=== PATIENT | male | born 1930 | race Two or more races ===

== ENCOUNTER 2017-03-05 16:47 | Inpatient (IN) | payer BC, MEDICAID ==
[~2017-03-05] VITALS: Ht 185.4 cm; Wt 75.6 kg
[~2017-03-05 16:47] MED LIST: BICA50TA7 PO; CARB0.5D35 OP; DORZ1SOL2 OP; FER325T PO; LITH300C3 PO; THIO25TA PO
[2017-03-05] MEDS ORDERED: ACETAMINOPHEN 325 MG TAB PO ONE ×2 (17:39→17:45)
[2017-03-05] MEDS ORDERED: SODIUM CHLORIDE 0.9% 1,000 ML IVB ONE (18:13)
[2017-03-05 18:34] LABS: Albumin 2.9 g/dL (3.4-5.0); BUN/Creatinine Ratio 13.8; Potassium 3.7 mmol/L (3.5-5.1)
[2017-03-05 18:36] LABS: Basophils # (auto) 0 uL; Basophils % (auto) 0.2 % (0.0-2.0); Eosinophils # (auto) 0 uL; Hematocrit 37.5 % (41.0-53.0); Hemoglobin 12.7 g/dL (13.5-17.5); Lactic Acid w/Reflex 2.5 mmol/L (0.4-2.0); Lymphocytes # (auto) 0.8 uL; Lymphocytes % (auto) 7.7 % (10.0-50.0); Mean Corpuscular Hemoglobin 32.9 pg (28.0-32.0); Mean Corpuscular Hgb Conc. 33.9 g/dL (32.0-36.0); Mean Corpuscular Volume 96.9 fL (80.0-100.0); Monocytes # (auto) 0.9 uL; Monocytes % (auto) 8.5 % (0.0-12.0); Neutrophils # (auto) 8.9 uL; Neutrophils % (auto) 83.6 % (37.0-80.0); Nucleated Red Blood Cells % 0.1 %; Platelet Count (auto) 116 10^3/uL (140-450); Red Blood Cells 3.87 10^6/uL (4.5-5.90); Red Cell Distribution Width 13.1 % (11.8-14.3); White Blood Cell 10.7 10^3/uL (4.4-10.8)
[2017-03-05 18:38] LABS: Bilirubin, Total 0.4 mg/dL (0.2-1.0); Total Protein 7.2 g/dL (6.4-8.2)
[2017-03-05 18:50] LABS: INR 1.01 (0.9-1.15); Partial Thromboplastin Time 29.6 sec (22.64-33.71)
[2017-03-05] MEDS ORDERED: AZITHROMYCIN 500MG/ 250ML 250 ML IV ONE (19:00)
[2017-03-05] MEDS ORDERED: cefTRIAXone 1GM/10ml IVPUSH 10 ML IV ONE (19:00)
[2017-03-05] MEDS ORDERED: MORPHINE SULFATE 4 MG/ML SYR/VIAL IV PRN ×2 (19:30)
[2017-03-05] MEDS ORDERED: TEMAZEPAM 15 MG CAP PO PRN (19:30)
[2017-03-05] MEDS ORDERED: LACTULOSE 20Gm/30ML SOLN PO PRN (19:30)
[2017-03-05] MEDS ORDERED: LORazepam 0.5 MG TAB PO PRN (19:30)
[2017-03-05] MEDS ORDERED: NITROGLYCERIN 0.4 MG SL TAB SL PRN (19:30)
[2017-03-05] MEDS ORDERED: ACETAMINOPHEN 500 MG TAB PO PRN (19:30)
[2017-03-05] MEDS ORDERED: ALBUTEROL SULF 2.5 MG/0.5ML(0.5%) NEB SOLN NEB PRN (19:30)
[2017-03-05] MEDS ORDERED: PROMETHAZINE HCL 25 MG/ML 1ML IV PRN (19:30)
[2017-03-05] MEDS ORDERED: OSELTAMIVIR 75 MG CAP PO ONE (19:30)
[2017-03-05] MEDS: SODIUM CHLORIDE 0.9% 1,000 ML IV SCH ×2 (20:30→22:46)
[2017-03-05] MEDS ORDERED: ENOXAPARIN SOD 40 MG/0.4 ML SYRINGE SC SCH (21:00)
[2017-03-05 21:40] VITALS: BP 111/64
[2017-03-05 23:38] VITALS: BP 111/64
[2017-03-05 23:45] VITALS: BP 111/64
[2017-03-05] MEDS: IPRATROPIUM BROM 0.5 MG/2.5ML INH SOL NEB SCH (23:46)
[2017-03-05] MEDS: ALBUTEROL SULF 2.5 MG/0.5ML(0.5%) NEB SOLN NEB SCH (23:46)
[2017-03-06] MEDS ORDERED: ASCO100C2 PO (00:14)
[2017-03-06] MEDS ORDERED: MULT-569 PO (00:14)
[2017-03-06] MEDS ORDERED: LEVO25TA6 PO (00:14)
[2017-03-06 05:35] VITALS: BP 140/62
[2017-03-06] MEDS: ALBUTEROL SULF 2.5 MG/0.5ML(0.5%) NEB SOLN NEB SCH ×3 (07:56→18:00)
[2017-03-06] MEDS: IPRATROPIUM BROM 0.5 MG/2.5ML INH SOL NEB SCH ×3 (07:56→18:00)
[2017-03-06 09:00] VITALS: BP 113/63
[2017-03-06] MEDS: cefTRIAXone 1GM/10ml IVPUSH 10 ML IV SCH (09:23)
[2017-03-06] MEDS: AZITHROMYCIN 500MG/ 250ML 250 ML IV SCH (09:23)
[2017-03-06] MEDS ORDERED: OSELTAMIVIR 75 MG CAP PO SCH (10:00)
[2017-03-06] MEDS ORDERED: LITH300C3 PO (10:40)
[2017-03-06] MEDS ORDERED: DORZ2SOL22 LEFTEYE (10:40)
[2017-03-06] MEDS ORDERED: BICA50TA7 PO (10:40)
[2017-03-06] MEDS ORDERED: LEVO50TA7 PO (10:40)
[2017-03-06] MEDS ORDERED: THIO25TA PO (10:40)
[2017-03-06 13:00] VITALS: BP 121/58
[2017-03-06] MEDS: LITHIUM CARBONATE 300 MG TAB PO SCH ×2 (15:11→21:55)
[2017-03-06 16:00] VITALS: BP 121/61
[2017-03-06] MEDS: SODIUM CHLORIDE 0.9% 1,000 ML IV SCH (21:55)
[2017-03-06 22:00] VITALS: BP 128/69
[2017-03-07] MEDS: ALBUTEROL SULF 2.5 MG/0.5ML(0.5%) NEB SOLN NEB SCH ×5 (00:23→23:47)
[2017-03-07] MEDS: IPRATROPIUM BROM 0.5 MG/2.5ML INH SOL NEB SCH ×5 (00:23→23:47)
[2017-03-07] MEDS ORDERED: BICA50TA6 PO (00:26)
[2017-03-07 05:00] VITALS: BP 111/56
[2017-03-07] MEDS: LITHIUM CARBONATE 300 MG TAB PO SCH ×3 (06:43→21:18)
[2017-03-07 06:53] LABS: Basophils # (auto) 0 uL; Basophils % (auto) 0.2 % (0.0-2.0); Eosinophils # (auto) 0 uL; Eosinophils % (auto) 0.6 % (0.0-7.0); Hematocrit 33.4 % (41.0-53.0); Hemoglobin 11.3 g/dL (13.5-17.5); Lymphocytes # (auto) 1.7 uL; Lymphocytes % (auto) 30.3 % (10.0-50.0); Mean Corpuscular Hemoglobin 32.7 pg (28.0-32.0); Mean Corpuscular Hgb Conc. 33.9 g/dL (32.0-36.0); Mean Corpuscular Volume 96.5 fL (80.0-100.0); Monocytes # (auto) 0.6 uL; Neutrophils # (auto) 3.3 uL; Neutrophils % (auto) 58.9 % (37.0-80.0); Nucleated Red Blood Cells % 0.1 %; Platelet Count (auto) 93 10^3/uL (140-450); Red Blood Cells 3.46 10^6/uL (4.5-5.90); Red Cell Distribution Width 13.3 % (11.8-14.3); White Blood Cell 5.7 10^3/uL (4.4-10.8)
[2017-03-07 07:11] LABS: BUN/Creatinine Ratio 13.3; Calcium 7.4 mg/dL (8.5-10.1)
[2017-03-07] MEDS: AZITHROMYCIN 500MG/ 250ML 250 ML IV SCH (09:14)
[2017-03-07] MEDS: cefTRIAXone 1GM/10ml IVPUSH 10 ML IV SCH (09:14)
[2017-03-07 09:15] VITALS: BP 117/56
[2017-03-07] MEDS ORDERED: methylPREDNISolone SOD SUCC 40 MG/ML VL IV ONE (12:00)
[2017-03-07 12:19] VITALS: BP 109/54
[2017-03-07 17:03] VITALS: BP 122/62
[2017-03-07] MEDS: methylPREDNISolone SOD SUCC 40 MG/ML VL IV SCH (21:17)
[2017-03-07] MEDS: HCL PO SCH (21:29)
[2017-03-07] MEDS: THIORIDAZINE PO SCH (21:29)
[2017-03-07 21:58] VITALS: BP 132/69
[2017-03-08] VITALS (7 sets, daily range): BP systolic 125–147; BP diastolic 71–88
[2017-03-08] MEDS: LITHIUM CARBONATE 300 MG TAB PO SCH ×3 (05:28→20:56)
[2017-03-08] MEDS: IPRATROPIUM BROM 0.5 MG/2.5ML INH SOL NEB SCH ×2 (07:07→11:31)
[2017-03-08] MEDS: ALBUTEROL SULF 2.5 MG/0.5ML(0.5%) NEB SOLN NEB SCH ×2 (07:08→11:31)
[2017-03-08] MEDS: cefTRIAXone 1GM/10ml IVPUSH 10 ML IV SCH (09:46)
[2017-03-08] MEDS: AZITHROMYCIN 500MG/ 250ML 250 ML IV SCH (09:46)
[2017-03-08] MEDS: methylPREDNISolone SOD SUCC 40 MG/ML VL IV SCH (09:46)
[2017-03-08] MEDS: THIORIDAZINE PO SCH (10:00)
[2017-03-08] MEDS: HCL PO SCH (10:00)
[2017-03-08] MEDS ORDERED: PATIENTS OWN MEDICATION PO SCH (12:00)
[2017-03-08] MEDS: THIORIDAZINE 25 MG PO SCH ×2 (17:03→20:58)
[2017-03-09] MEDS: ALBUTEROL SULF 2.5 MG/0.5ML(0.5%) NEB SOLN NEB SCH ×4 (00:30→19:25)
[2017-03-09] MEDS: IPRATROPIUM BROM 0.5 MG/2.5ML INH SOL NEB SCH ×4 (00:30→19:25)
[2017-03-09 04:56] VITALS: BP 131/87
[2017-03-09 06:00] LABS: Basophils # (auto) 0 uL; Basophils % (auto) 0.1 % (0.0-2.0); Eosinophils # (auto) 0 uL; Hemoglobin 12.2 g/dL (13.5-17.5); Lymphocytes # (auto) 1.6 uL; Lymphocytes % (auto) 15.7 % (10.0-50.0); Mean Corpuscular Hemoglobin 32.4 pg (28.0-32.0); Mean Corpuscular Hgb Conc. 33.8 g/dL (32.0-36.0); Mean Corpuscular Volume 95.7 fL (80.0-100.0); Monocytes # (auto) 0.7 uL; Monocytes % (auto) 7.1 % (0.0-12.0); Neutrophils % (auto) 77.1 % (37.0-80.0); Platelet Count (auto) 128 10^3/uL (140-450); Red Blood Cells 3.76 10^6/uL (4.5-5.90); White Blood Cell 10.3 10^3/uL (4.4-10.8)
[2017-03-09 06:21] LABS: BUN/Creatinine Ratio 27.3; Calcium 8.2 mg/dL (8.5-10.1); Potassium 4.3 mmol/L (3.5-5.1)
[2017-03-09] MEDS: LITHIUM CARBONATE 300 MG TAB PO SCH ×3 (06:38→21:18)
[2017-03-09] MEDS: LEVOTHYROXINE SODIUM 50 MCG TAB PO SCH (06:38)
[2017-03-09] MEDS: THIORIDAZINE 25 MG PO SCH ×3 (06:39→21:18)
[2017-03-09 07:42] VITALS: BP 143/81
[2017-03-09] MEDS: cefTRIAXone 1GM/10ml IVPUSH 10 ML IV SCH (09:49)
[2017-03-09] MEDS: AZITHROMYCIN 500MG/ 250ML 250 ML IV SCH (09:50)
[2017-03-09] MEDS: predniSONE 20 MG TAB PO SCH (09:50)
[2017-03-09 11:50] VITALS: BP 141/68
[2017-03-09 13:47] LABS: Urine Bacteria NONE SEEN /hpf (None Seen); Urine Blood Negative /uL (Negative); Urine Specific Gravity 1.012 (1.001-1.035); Urine WBC 1 /hpf (0 - 3)
[2017-03-09 17:01] VITALS: BP 139/75
[2017-03-09 22:18] VITALS: BP 142/78
[2017-03-09 23:42] LABS: % Iron Saturation 26.6 % (20-55)
[2017-03-10] MEDS: ALBUTEROL SULF 2.5 MG/0.5ML(0.5%) NEB SOLN NEB SCH ×4 (00:06→19:11)
[2017-03-10] MEDS: IPRATROPIUM BROM 0.5 MG/2.5ML INH SOL NEB SCH ×4 (00:06→19:10)
[2017-03-10 04:42] VITALS: BP 132/67
[2017-03-10] MEDS: LITHIUM CARBONATE 300 MG TAB PO SCH ×3 (05:47→20:41)
[2017-03-10] MEDS: LEVOTHYROXINE SODIUM 50 MCG TAB PO SCH (05:48)
[2017-03-10] MEDS: THIORIDAZINE 25 MG PO SCH ×3 (05:48→20:42)
[2017-03-10 06:31] LABS: Basophils # (auto) 0 uL; Basophils % (auto) 0.1 % (0.0-2.0); Eosinophils # (auto) 0 uL; Eosinophils % (auto) 0.1 % (0.0-7.0); Hematocrit 37.2 % (41.0-53.0); Hemoglobin 12.7 g/dL (13.5-17.5); Lymphocytes # (auto) 1.8 uL; Lymphocytes % (auto) 21.3 % (10.0-50.0); Mean Corpuscular Hemoglobin 32.5 pg (28.0-32.0); Mean Corpuscular Hgb Conc. 34.1 g/dL (32.0-36.0); Mean Corpuscular Volume 95.4 fL (80.0-100.0); Monocytes # (auto) 0.8 uL; Monocytes % (auto) 9.7 % (0.0-12.0); Neutrophils # (auto) 5.7 uL; Neutrophils % (auto) 68.8 % (37.0-80.0); Platelet Count (auto) 132 10^3/uL (140-450); White Blood Cell 8.3 10^3/uL (4.4-10.8)
[2017-03-10 07:30] LABS: Albumin 2.5 g/dL (3.4-5.0); BUN/Creatinine Ratio 28.7; Bilirubin, Total 0.3 mg/dL (0.2-1.0); Calcium 8.3 mg/dL (8.5-10.1); Magnesium 2.8 mg/dL (1.6-2.6); Phosphorus 3.1 mg/dL (2.5-4.90); Potassium 4.2 mmol/L (3.5-5.1); Total Protein 6.2 g/dL (6.4-8.2)
[2017-03-10 08:23] VITALS: BP 137/79
[2017-03-10] MEDS: cefTRIAXone 1GM/10ml IVPUSH 10 ML IV SCH (10:17)
[2017-03-10] MEDS: AZITHROMYCIN 500MG/ 250ML 250 ML IV SCH (10:18)
[2017-03-10] MEDS: predniSONE 20 MG TAB PO SCH (10:18)
[2017-03-10] MEDS: FERROUS SULFATE 325 MG TAB PO SCH (12:41)
[2017-03-10] MEDS: MULTIPLE VITAMINS W/ MINERALS TAB PO SCH (12:42)
[2017-03-10] MEDS: ASCORBIC ACID 500 MG TAB PO SCH (12:42)
[2017-03-10] MEDS: BICALUTAMIDE 50 MG TAB PO SCH (12:50)
[2017-03-10 13:21] VITALS: BP 144/61
[2017-03-10] MEDS ORDERED: THIORIDAZINE HCL PO SCH (14:00)
[2017-03-10] MEDS ORDERED: LITHIUM CARBONATE 300 MG TAB PO SCH (14:00)
[2017-03-10] MEDS ORDERED: LEVOTHYROXINE SODIUM 50 MCG TAB PO ONE (15:00)
[2017-03-10 17:00] VITALS: BP 129/79
[2017-03-10] MEDS: BOOST PLUS 8 ounce PO SCH (18:00)
[2017-03-10] MEDS ORDERED: FERR-20 PO (19:51)
[2017-03-10] MEDS ORDERED: ASCO500T11 PO (19:51)
[2017-03-10] MEDS ORDERED: THIO50TA PO (19:51)
[2017-03-10] MEDS ORDERED: LITH300C3 PO (19:51)
[2017-03-10] MEDS ORDERED: THIO25TA PO (19:51)
[2017-03-10] MEDS: DORZOLAM-TIMOLOL(2/0.5%) OPTH(EYE) SOLN 10ML LEFTEYE SCH (20:41)
[2017-03-10 22:00] VITALS: BP 131/76
[2017-03-11] MEDS: IPRATROPIUM BROM 0.5 MG/2.5ML INH SOL NEB SCH ×4 (00:40→20:30)
[2017-03-11] MEDS: ALBUTEROL SULF 2.5 MG/0.5ML(0.5%) NEB SOLN NEB SCH ×4 (00:40→20:30)
[2017-03-11 05:00] VITALS: BP 136/82
[2017-03-11] MEDS: LITHIUM CARBONATE 300 MG TAB PO SCH ×3 (05:38→19:55)
[2017-03-11] MEDS: THIORIDAZINE 25 MG PO SCH ×3 (05:39→19:48)
[2017-03-11] MEDS: LEVOTHYROXINE SODIUM 50 MCG TAB PO SCH (05:40)
[2017-03-11 06:29] LABS: Basophils # (auto) 0 uL; Basophils % (auto) 0.1 % (0.0-2.0); Eosinophils # (auto) 0 uL; Eosinophils % (auto) 0.3 % (0.0-7.0); Hematocrit 39.2 % (41.0-53.0); Hemoglobin 13.4 g/dL (13.5-17.5); Lymphocytes # (auto) 2.2 uL; Mean Corpuscular Hemoglobin 32.4 pg (28.0-32.0); Mean Corpuscular Hgb Conc. 34.2 g/dL (32.0-36.0); Mean Corpuscular Volume 94.8 fL (80.0-100.0); Monocytes # (auto) 0.9 uL; Monocytes % (auto) 8.2 % (0.0-12.0); Neutrophils # (auto) 7.5 uL; Neutrophils % (auto) 70.4 % (37.0-80.0); Platelet Count (auto) 150 10^3/uL (140-450); Red Blood Cells 4.13 10^6/uL (4.5-5.90); White Blood Cell 10.7 10^3/uL (4.4-10.8)
[2017-03-11 06:49] LABS: Albumin 2.5 g/dL (3.4-5.0); BUN/Creatinine Ratio 30.9; Bilirubin, Total 0.3 mg/dL (0.2-1.0); Calcium 8.1 mg/dL (8.5-10.1); Magnesium 2.7 mg/dL (1.6-2.6); Phosphorus 3.2 mg/dL (2.5-4.90); Total Protein 6.4 g/dL (6.4-8.2)
[2017-03-11] MEDS ORDERED: LEVOTHYROXINE SODIUM 50 MCG TAB PO SCH (07:00)
[2017-03-11 09:00] VITALS: BP 136/78
[2017-03-11] MEDS: DORZOLAM-TIMOLOL(2/0.5%) OPTH(EYE) SOLN 10ML LEFTEYE SCH ×2 (10:07→19:55)
[2017-03-11] MEDS: BOOST PLUS 8 ounce PO SCH ×2 (10:07→18:00)
[2017-03-11] MEDS: cefTRIAXone 1GM/10ml IVPUSH 10 ML IV SCH (10:07)
[2017-03-11] MEDS: BICALUTAMIDE 50 MG TAB PO SCH (10:08)
[2017-03-11] MEDS: MULTIPLE VITAMINS W/ MINERALS TAB PO SCH (10:08)
[2017-03-11] MEDS: predniSONE 20 MG TAB PO SCH (10:08)
[2017-03-11] MEDS: FERROUS SULFATE 325 MG TAB PO SCH (10:08)
[2017-03-11] MEDS: ASCORBIC ACID 500 MG TAB PO SCH (10:08)
[2017-03-11] MEDS ORDERED: LEVOFLOXACIN 500MG 100 ML IV ONE (12:30)
[2017-03-11 12:50] VITALS: BP 124/72
[2017-03-11 17:00] VITALS: BP 119/73
[2017-03-11 22:00] VITALS: BP 145/80
[2017-03-12] MEDS: ALBUTEROL SULF 2.5 MG/0.5ML(0.5%) NEB SOLN NEB SCH ×4 (01:10→19:27)
[2017-03-12] MEDS: IPRATROPIUM BROM 0.5 MG/2.5ML INH SOL NEB SCH ×4 (01:10→19:26)
[2017-03-12 05:00] VITALS: BP 141/84
[2017-03-12] MEDS: THIORIDAZINE 25 MG PO SCH ×3 (06:00→20:00)
[2017-03-12] MEDS: LEVOTHYROXINE SODIUM 50 MCG TAB PO SCH (06:39)
[2017-03-12] MEDS: LITHIUM CARBONATE 300 MG TAB PO SCH ×3 (06:40→20:20)
[2017-03-12] MEDS: HYDROcodone-ACET 5/325MG TAB PO PRN ×2 (08:08→13:46)
[2017-03-12 08:57] VITALS: BP 127/65
[2017-03-12] MEDS ORDERED: AZITHROMYCIN 250 MG TAB PO SCH (10:00)
[2017-03-12] MEDS: BOOST PLUS 8 ounce PO SCH ×2 (10:10→18:00)
[2017-03-12] MEDS: LEVOFLOXACIN 500MG 100 ML IV SCH (10:12)
[2017-03-12] MEDS: FERROUS SULFATE 325 MG TAB PO SCH (10:12)
[2017-03-12] MEDS: ASCORBIC ACID 500 MG TAB PO SCH (10:13)
[2017-03-12] MEDS: MULTIPLE VITAMINS W/ MINERALS TAB PO SCH (10:13)
[2017-03-12] MEDS: DORZOLAM-TIMOLOL(2/0.5%) OPTH(EYE) SOLN 10ML LEFTEYE SCH ×2 (10:14→20:00)
[2017-03-12] MEDS: predniSONE 20 MG TAB PO SCH (10:14)
[2017-03-12] MEDS: BICALUTAMIDE 50 MG TAB PO SCH (10:18)
[2017-03-12 13:28] VITALS: BP 124/65
[2017-03-12] MEDS: metroNIDAZOLE 500MG/100ML 100 ML IV SCH ×2 (13:46→22:27)
[2017-03-12 16:28] VITALS: BP 123/66
[2017-03-12 17:11] VITALS: BP 123/78
[2017-03-12 22:00] VITALS: BP 118/60
[2017-03-13] MEDS: IPRATROPIUM BROM 0.5 MG/2.5ML INH SOL NEB SCH ×4 (00:38→19:43)
[2017-03-13] MEDS: ALBUTEROL SULF 2.5 MG/0.5ML(0.5%) NEB SOLN NEB SCH ×4 (00:38→19:43)
[2017-03-13 05:00] VITALS: BP 134/80
[2017-03-13] MEDS: metroNIDAZOLE 500MG/100ML 100 ML IV SCH ×3 (05:40→21:35)
[2017-03-13] MEDS: LEVOTHYROXINE SODIUM 50 MCG TAB PO SCH (05:48)
[2017-03-13] MEDS: LITHIUM CARBONATE 300 MG TAB PO SCH ×3 (05:49→22:00)
[2017-03-13] MEDS: THIORIDAZINE 25 MG PO SCH ×3 (05:50→22:00)
[2017-03-13 06:58] LABS: Albumin 2.6 g/dL (3.4-5.0); BUN/Creatinine Ratio 26.3; Bilirubin, Total 0.4 mg/dL (0.2-1.0); Calcium 8.2 mg/dL (8.5-10.1); Total Protein 6.5 g/dL (6.4-8.2)
[2017-03-13 07:04] LABS: Basophils # (auto) 0 uL; Basophils % (auto) 0.1 % (0.0-2.0); Eosinophils # (auto) 0.1 uL; Eosinophils % (auto) 1.1 % (0.0-7.0); Hematocrit 39.2 % (41.0-53.0); Hemoglobin 13.2 g/dL (13.5-17.5); Lymphocytes # (auto) 2.4 uL; Lymphocytes % (auto) 17.4 % (10.0-50.0); Mean Corpuscular Hemoglobin 31.9 pg (28.0-32.0); Mean Corpuscular Hgb Conc. 33.7 g/dL (32.0-36.0); Mean Corpuscular Volume 94.9 fL (80.0-100.0); Monocytes # (auto) 0.9 uL; Monocytes % (auto) 6.8 % (0.0-12.0); Neutrophils # (auto) 10.2 uL; Neutrophils % (auto) 74.6 % (37.0-80.0); Platelet Count (auto) 147 10^3/uL (140-450); Red Blood Cells 4.13 10^6/uL (4.5-5.90); Red Cell Distribution Width 12.8 % (11.8-14.3); White Blood Cell 13.7 10^3/uL (4.4-10.8)
[2017-03-13 08:30] VITALS: BP 133/75
[2017-03-13] MEDS: ASCORBIC ACID 500 MG TAB PO SCH (08:47)
[2017-03-13] MEDS: predniSONE 20 MG TAB PO SCH (08:47)
[2017-03-13] MEDS: DORZOLAM-TIMOLOL(2/0.5%) OPTH(EYE) SOLN 10ML LEFTEYE SCH ×2 (08:47→21:35)
[2017-03-13] MEDS: FERROUS SULFATE 325 MG TAB PO SCH (08:48)
[2017-03-13] MEDS: MULTIPLE VITAMINS W/ MINERALS TAB PO SCH (08:48)
[2017-03-13] MEDS: BICALUTAMIDE 50 MG TAB PO SCH (08:48)
[2017-03-13] MEDS: LEVOFLOXACIN 500MG 100 ML IV SCH (08:48)
[2017-03-13] MEDS: BOOST PLUS 8 ounce PO SCH ×2 (08:49→17:48)
[2017-03-13 12:30] VITALS: BP 131/66
[2017-03-13] MEDS: HYDROcodone-ACET 5/325MG TAB PO PRN (13:51)
[2017-03-13] MEDS ORDERED: TEMAZEPAM 15 MG CAP PO PRN (15:15)
[2017-03-13] MEDS ORDERED: LORazepam 0.5 MG TAB PO PRN (15:15)
[2017-03-13] MEDS ORDERED: MORPHINE SULF INJ 2 MG/ML SYRINGE 1ML IV PRN ×2 (15:30)
[2017-03-13 17:17] VITALS: BP 131/72
[2017-03-13 22:13] VITALS: BP 132/74
[2017-03-14 05:41] VITALS: BP 130/73
[2017-03-14] MEDS: IPRATROPIUM BROM 0.5 MG/2.5ML INH SOL NEB SCH ×4 (05:53→19:00)
[2017-03-14] MEDS: ALBUTEROL SULF 2.5 MG/0.5ML(0.5%) NEB SOLN NEB SCH ×4 (05:54→19:01)
[2017-03-14] MEDS: LEVOTHYROXINE SODIUM 50 MCG TAB PO SCH (06:12)
[2017-03-14] MEDS: metroNIDAZOLE 500MG/100ML 100 ML IV SCH ×3 (06:12→22:02)
[2017-03-14] MEDS: LITHIUM CARBONATE 300 MG TAB PO SCH ×3 (06:12→20:15)
[2017-03-14] MEDS: THIORIDAZINE 25 MG PO SCH ×3 (06:12→20:15)
[2017-03-14] MEDS: LEVOFLOXACIN 500MG 100 ML IV SCH (08:40)
[2017-03-14] MEDS: DORZOLAM-TIMOLOL(2/0.5%) OPTH(EYE) SOLN 10ML LEFTEYE SCH ×2 (08:40→22:02)
[2017-03-14] MEDS: BICALUTAMIDE 50 MG TAB PO SCH (08:41)
[2017-03-14] MEDS: predniSONE 20 MG TAB PO SCH (08:41)
[2017-03-14] MEDS: FERROUS SULFATE 325 MG TAB PO SCH (08:41)
[2017-03-14] MEDS: BOOST PLUS 8 ounce PO SCH ×2 (08:42→17:59)
[2017-03-14] MEDS: ASCORBIC ACID 500 MG TAB PO SCH (08:42)
[2017-03-14] MEDS: MULTIPLE VITAMINS W/ MINERALS TAB PO SCH (08:42)
[2017-03-14 08:59] VITALS: BP 132/75
[2017-03-14 13:00] VITALS: BP 127/69
[2017-03-14 17:00] VITALS: BP 118/71
[2017-03-14 18:32] LABS: Partial Thromboplastin Time 24.1 sec (22.64-33.71)
[2017-03-14 18:36] LABS: INR 0.99 (0.9-1.15); Prothrombin Time 10.8 sec (9.37-12.3)
[2017-03-14 21:56] VITALS: BP 125/80
[2017-03-15] VITALS (8 sets, daily range): BP systolic 115–130; BP diastolic 63–74
[2017-03-15] MEDS: IPRATROPIUM BROM 0.5 MG/2.5ML INH SOL NEB SCH ×4 (00:13→19:28)
[2017-03-15] MEDS: ALBUTEROL SULF 2.5 MG/0.5ML(0.5%) NEB SOLN NEB SCH ×4 (00:14→19:28)
[2017-03-15] MEDS: THIORIDAZINE 25 MG PO SCH ×3 (05:25→22:03)
[2017-03-15] MEDS: LEVOTHYROXINE SODIUM 50 MCG TAB PO SCH (05:25)
[2017-03-15] MEDS: LITHIUM CARBONATE 300 MG TAB PO SCH ×3 (05:25→22:03)
[2017-03-15] MEDS: metroNIDAZOLE 500MG/100ML 100 ML IV SCH (05:25)
[2017-03-15] MEDS ORDERED: ceFAZolin 1GM/50ML 50 ML IV ONE (06:58)
[2017-03-15] MEDS ORDERED: predniSONE 20 MG TAB PO SCH (10:00)
[2017-03-15] MEDS: DORZOLAM-TIMOLOL(2/0.5%) OPTH(EYE) SOLN 10ML LEFTEYE SCH ×2 (10:05→22:03)
[2017-03-15] MEDS: ASCORBIC ACID 500 MG TAB PO SCH (10:05)
[2017-03-15] MEDS: MULTIPLE VITAMINS W/ MINERALS TAB PO SCH (10:06)
[2017-03-15] MEDS: FERROUS SULFATE 325 MG TAB PO SCH (10:06)
[2017-03-15] MEDS: LEVOFLOXACIN 500MG 100 ML IV SCH (10:07)
[2017-03-15] MEDS: BOOST PLUS 8 ounce PO SCH ×2 (10:08→18:00)
[2017-03-15] MEDS: BICALUTAMIDE 50 MG TAB PO SCH (10:14)
[2017-03-15] MEDS: metroNIDAZOLE 500 MG TAB PO SCH ×2 (14:28→22:03)
[2017-03-16] MEDS: IPRATROPIUM BROM 0.5 MG/2.5ML INH SOL NEB SCH ×5 (00:53→18:00)
[2017-03-16] MEDS: ALBUTEROL SULF 2.5 MG/0.5ML(0.5%) NEB SOLN NEB SCH ×5 (00:53→18:00)
[2017-03-16 04:59] VITALS: BP 112/64
[2017-03-16] MEDS: LITHIUM CARBONATE 300 MG TAB PO SCH ×3 (06:25→21:56)
[2017-03-16] MEDS: metroNIDAZOLE 500 MG TAB PO SCH ×3 (06:26→21:56)
[2017-03-16] MEDS: THIORIDAZINE 25 MG PO SCH ×3 (06:26→21:56)
[2017-03-16] MEDS: LEVOTHYROXINE SODIUM 50 MCG TAB PO SCH (06:37)
[2017-03-16 07:19] LABS: Albumin 2.3 g/dL (3.4-5.0); BUN/Creatinine Ratio 34.1; Calcium 8.3 mg/dL (8.5-10.1); Potassium 3.9 mmol/L (3.5-5.1)
[2017-03-16 07:20] LABS: Basophils # (auto) 0 uL; Basophils % (auto) 0.1 % (0.0-2.0); Eosinophils # (auto) 0.1 uL; Eosinophils % (auto) 0.6 % (0.0-7.0); Hematocrit 37.1 % (41.0-53.0); Hemoglobin 12.3 g/dL (13.5-17.5); Lymphocytes # (auto) 2.2 uL; Lymphocytes % (auto) 10.6 % (10.0-50.0); Mean Corpuscular Hemoglobin 31.8 pg (28.0-32.0); Mean Corpuscular Hgb Conc. 33.1 g/dL (32.0-36.0); Monocytes # (auto) 1.6 uL; Monocytes % (auto) 7.7 % (0.0-12.0); Platelet Count (auto) 158 10^3/uL (140-450); Red Blood Cells 3.87 10^6/uL (4.5-5.90); Red Cell Distribution Width 13.2 % (11.8-14.3)
[2017-03-16 07:22] LABS: Bilirubin, Total 0.3 mg/dL (0.2-1.0); Total Protein 6.3 g/dL (6.4-8.2)
[2017-03-16 08:00] VITALS: BP 135/78
[2017-03-16 08:40] VITALS: BP 117/64
[2017-03-16] MEDS: MULTIPLE VITAMINS W/ MINERALS TAB PO SCH (10:00)
[2017-03-16] MEDS: ASCORBIC ACID 500 MG TAB PO SCH (10:00)
[2017-03-16] MEDS: BICALUTAMIDE 50 MG TAB PO SCH (10:01)
[2017-03-16] MEDS: BOOST PLUS 8 ounce PO SCH ×2 (10:01→18:00)
[2017-03-16] MEDS: LEVOFLOXACIN 500MG 100 ML IV SCH (10:01)
[2017-03-16] MEDS: FERROUS SULFATE 325 MG TAB PO SCH (10:01)
[2017-03-16] MEDS: DORZOLAM-TIMOLOL(2/0.5%) OPTH(EYE) SOLN 10ML LEFTEYE SCH ×2 (10:02→21:55)
[2017-03-16 12:30] VITALS: BP 120/70
[2017-03-16 17:23] VITALS: BP 114/65
[2017-03-16] MEDS: HYDROcodone-ACET 5/325MG TAB PO PRN (18:30)
[2017-03-16 22:28] VITALS: BP 129/55
[2017-03-17] VITALS (7 sets, daily range): BP systolic 113–121; BP diastolic 50–66
[2017-03-17] MEDS: IPRATROPIUM BROM 0.5 MG/2.5ML INH SOL NEB SCH ×4 (00:40→19:47)
[2017-03-17] MEDS: ALBUTEROL SULF 2.5 MG/0.5ML(0.5%) NEB SOLN NEB SCH ×4 (00:40→19:47)
[2017-03-17] MEDS: metroNIDAZOLE 500 MG TAB PO SCH ×3 (05:23→22:08)
[2017-03-17] MEDS: THIORIDAZINE 25 MG PO SCH ×3 (05:23→22:08)
[2017-03-17] MEDS: LITHIUM CARBONATE 300 MG TAB PO SCH ×3 (05:24→22:06)
[2017-03-17] MEDS: LEVOTHYROXINE SODIUM 50 MCG TAB PO SCH (06:29)
[2017-03-17 07:18] LABS: Basophils # (auto) 0 uL; Basophils % (auto) 0.1 % (0.0-2.0); Eosinophils # (auto) 0.1 uL; Eosinophils % (auto) 0.4 % (0.0-7.0); Hemoglobin 11.8 g/dL (13.5-17.5); Lymphocytes # (auto) 1.7 uL; Lymphocytes % (auto) 8.9 % (10.0-50.0); Mean Corpuscular Hemoglobin 32.2 pg (28.0-32.0); Mean Corpuscular Hgb Conc. 33.6 g/dL (32.0-36.0); Mean Corpuscular Volume 95.8 fL (80.0-100.0); Monocytes # (auto) 1.6 uL; Monocytes % (auto) 8.1 % (0.0-12.0); Neutrophils # (auto) 16.1 uL; Neutrophils % (auto) 82.5 % (37.0-80.0); Nucleated Red Blood Cells % 0.1 %; Platelet Count (auto) 166 10^3/uL (140-450); Red Blood Cells 3.65 10^6/uL (4.5-5.90); White Blood Cell 19.6 10^3/uL (4.4-10.8)
[2017-03-17 07:23] LABS: Calcium 8.1 mg/dL (8.5-10.1); Potassium 4.2 mmol/L (3.5-5.1)
[2017-03-17] MEDS: MULTIPLE VITAMINS W/ MINERALS TAB PO SCH (09:43)
[2017-03-17] MEDS: LEVOFLOXACIN 500MG 100 ML IV SCH (09:43)
[2017-03-17] MEDS: ASCORBIC ACID 500 MG TAB PO SCH (09:43)
[2017-03-17] MEDS: BICALUTAMIDE 50 MG TAB PO SCH (09:43)
[2017-03-17] MEDS: FERROUS SULFATE 325 MG TAB PO SCH (09:45)
[2017-03-17] MEDS: DORZOLAM-TIMOLOL(2/0.5%) OPTH(EYE) SOLN 10ML LEFTEYE SCH ×2 (09:45→22:09)
[2017-03-17] MEDS: BOOST PLUS 8 ounce PO SCH ×2 (09:46→18:25)
[2017-03-17] MEDS: HYDROcodone-ACET 5/325MG TAB PO PRN (22:06)
[2017-03-18] VITALS (7 sets, daily range): BP systolic 115–126; BP diastolic 58–73
[2017-03-18] MEDS: ALBUTEROL SULF 2.5 MG/0.5ML(0.5%) NEB SOLN NEB SCH ×4 (00:35→19:25)
[2017-03-18] MEDS: IPRATROPIUM BROM 0.5 MG/2.5ML INH SOL NEB SCH ×4 (00:35→19:25)
[2017-03-18] MEDS: THIORIDAZINE 25 MG PO SCH ×3 (06:00→21:42)
[2017-03-18] MEDS: LITHIUM CARBONATE 300 MG TAB PO SCH ×3 (06:00→21:42)
[2017-03-18] MEDS: metroNIDAZOLE 500 MG TAB PO SCH ×3 (06:01→21:42)
[2017-03-18 06:33] LABS: Basophils # (auto) 0 uL; Basophils % (auto) 0.2 % (0.0-2.0); Eosinophils # (auto) 0.1 uL; Eosinophils % (auto) 0.4 % (0.0-7.0); Hematocrit 34.8 % (41.0-53.0); Hemoglobin 11.6 g/dL (13.5-17.5); Lymphocytes # (auto) 1.2 uL; Mean Corpuscular Hgb Conc. 33.5 g/dL (32.0-36.0); Mean Corpuscular Volume 95.7 fL (80.0-100.0); Monocytes # (auto) 1.6 uL; Monocytes % (auto) 7.9 % (0.0-12.0); Neutrophils # (auto) 17.3 uL; Neutrophils % (auto) 85.5 % (37.0-80.0); Platelet Count (auto) 162 10^3/uL (140-450); Red Blood Cells 3.63 10^6/uL (4.5-5.90); Red Cell Distribution Width 13.3 % (11.8-14.3); White Blood Cell 20.2 10^3/uL (4.4-10.8)
[2017-03-18] MEDS: LEVOTHYROXINE SODIUM 50 MCG TAB PO SCH (06:59)
[2017-03-18 07:04] LABS: Albumin 2.1 g/dL (3.4-5.0); BUN/Creatinine Ratio 27.5; Bilirubin, Total 0.8 mg/dL (0.2-1.0); Potassium 4.5 mmol/L (3.5-5.1); Total Protein 6.1 g/dL (6.4-8.2)
[2017-03-18] MEDS: BOOST PLUS 8 ounce PO SCH ×2 (08:00→17:22)
[2017-03-18] MEDS: LEVOFLOXACIN 500MG 100 ML IV SCH (09:19)
[2017-03-18] MEDS: BICALUTAMIDE 50 MG TAB PO SCH (09:20)
[2017-03-18] MEDS: DORZOLAM-TIMOLOL(2/0.5%) OPTH(EYE) SOLN 10ML LEFTEYE SCH ×2 (09:20→21:42)
[2017-03-18] MEDS: FERROUS SULFATE 325 MG TAB PO SCH (09:31)
[2017-03-18] MEDS: ASCORBIC ACID 500 MG TAB PO SCH (09:31)
[2017-03-18] MEDS: MULTIPLE VITAMINS W/ MINERALS TAB PO SCH (09:31)
[2017-03-18] MEDS ORDERED: NITROGLYCERIN 0.4 MG SL TAB SL PRN (12:15)
[2017-03-18] MEDS ORDERED: ALBUTEROL SULF 2.5 MG/0.5ML(0.5%) NEB SOLN NEB PRN (12:15)
[2017-03-18] MEDS ORDERED: PROMETHAZINE HCL 25 MG/ML 1ML IV PRN (12:15)
[2017-03-18] MEDS ORDERED: ACETAMINOPHEN 500 MG TAB PO PRN (12:15)
[2017-03-19] MEDS: IPRATROPIUM BROM 0.5 MG/2.5ML INH SOL NEB SCH ×4 (00:53→19:10)
[2017-03-19] MEDS: ALBUTEROL SULF 2.5 MG/0.5ML(0.5%) NEB SOLN NEB SCH ×4 (00:53→19:10)
[2017-03-19 05:00] VITALS: BP 123/72
[2017-03-19] MEDS: THIORIDAZINE 25 MG PO SCH ×3 (06:25→21:14)
[2017-03-19] MEDS: LITHIUM CARBONATE 300 MG TAB PO SCH ×3 (06:25→21:13)
[2017-03-19] MEDS: LEVOTHYROXINE SODIUM 50 MCG TAB PO SCH (06:25)
[2017-03-19] MEDS: metroNIDAZOLE 500 MG TAB PO SCH ×3 (06:25→21:13)
[2017-03-19 06:53] LABS: Basophils # (auto) 0 uL; Basophils % (auto) 0.1 % (0.0-2.0); Eosinophils # (auto) 0.1 uL; Eosinophils % (auto) 0.4 % (0.0-7.0); Hematocrit 35.1 % (41.0-53.0); Hemoglobin 11.7 g/dL (13.5-17.5); Lymphocytes # (auto) 1.4 uL; Lymphocytes % (auto) 6.8 % (10.0-50.0); Mean Corpuscular Hgb Conc. 33.3 g/dL (32.0-36.0); Mean Corpuscular Volume 96.2 fL (80.0-100.0); Monocytes # (auto) 1.5 uL; Monocytes % (auto) 7.4 % (0.0-12.0); Neutrophils # (auto) 17.1 uL; Neutrophils % (auto) 85.3 % (37.0-80.0); Platelet Count (auto) 194 10^3/uL (140-450); Red Blood Cells 3.65 10^6/uL (4.5-5.90); Red Cell Distribution Width 13.4 % (11.8-14.3)
[2017-03-19 07:03] LABS: BUN/Creatinine Ratio 30.7; Calcium 8.5 mg/dL (8.5-10.1); Potassium 4.3 mmol/L (3.5-5.1)
[2017-03-19 08:00] VITALS: BP_SYST 121; BP_SYST 122; BP_DIAS 66; BP_DIAS 67
[2017-03-19] MEDS: LEVOFLOXACIN 500MG 100 ML IV SCH (10:14)
[2017-03-19] MEDS: MULTIPLE VITAMINS W/ MINERALS TAB PO SCH (10:14)
[2017-03-19] MEDS: LACTULOSE 20Gm/30ML SOLN PO PRN (10:14)
[2017-03-19] MEDS: BICALUTAMIDE 50 MG TAB PO SCH (10:14)
[2017-03-19] MEDS: DORZOLAM-TIMOLOL(2/0.5%) OPTH(EYE) SOLN 10ML LEFTEYE SCH ×2 (10:15→21:14)
[2017-03-19] MEDS: BOOST PLUS 8 ounce PO SCH ×2 (10:15→18:00)
[2017-03-19] MEDS: ASCORBIC ACID 500 MG TAB PO SCH (10:15)
[2017-03-19 13:00] VITALS: BP 120/67
[2017-03-19] MEDS ORDERED: LACTULOSE 20Gm/30ML SOLN PO ONE (14:15)
[2017-03-19] MEDS ORDERED: DOCUSATE SOD 100 MG CAP PO ONE (14:15)
[2017-03-19 16:35] VITALS: BP 119/65
[2017-03-19 20:00] VITALS: BP 126/70
[2017-03-19 23:01] VITALS: BP 126/70
[2017-03-20] MEDS: ALBUTEROL SULF 2.5 MG/0.5ML(0.5%) NEB SOLN NEB SCH ×4 (00:58→19:21)
[2017-03-20] MEDS: IPRATROPIUM BROM 0.5 MG/2.5ML INH SOL NEB SCH ×4 (00:58→19:21)
[2017-03-20 05:55] VITALS: BP 128/75
[2017-03-20] MEDS: LITHIUM CARBONATE 300 MG TAB PO SCH ×3 (05:58→21:29)
[2017-03-20] MEDS: LEVOTHYROXINE SODIUM 50 MCG TAB PO SCH (05:58)
[2017-03-20] MEDS: metroNIDAZOLE 500 MG TAB PO SCH ×3 (05:58→21:29)
[2017-03-20] MEDS: THIORIDAZINE 25 MG PO SCH ×3 (06:00→21:29)
[2017-03-20 06:59] LABS: Basophils # (auto) 0 uL; Basophils % (auto) 0.2 % (0.0-2.0); Eosinophils # (auto) 0.1 uL; Eosinophils % (auto) 0.7 % (0.0-7.0); Hematocrit 35.1 % (41.0-53.0); Hemoglobin 11.7 g/dL (13.5-17.5); Lymphocytes # (auto) 1.8 uL; Lymphocytes % (auto) 9.5 % (10.0-50.0); Mean Corpuscular Hemoglobin 32.4 pg (28.0-32.0); Mean Corpuscular Hgb Conc. 33.3 g/dL (32.0-36.0); Mean Corpuscular Volume 97.2 fL (80.0-100.0); Monocytes # (auto) 1.4 uL; Monocytes % (auto) 7.7 % (0.0-12.0); Neutrophils # (auto) 15.4 uL; Neutrophils % (auto) 81.9 % (37.0-80.0); Platelet Count (auto) 209 10^3/uL (140-450); Red Blood Cells 3.61 10^6/uL (4.5-5.90); Red Cell Distribution Width 13.5 % (11.8-14.3); White Blood Cell 18.8 10^3/uL (4.4-10.8)
[2017-03-20] MEDS: ASCORBIC ACID 500 MG TAB PO SCH (09:15)
[2017-03-20] MEDS: LEVOFLOXACIN 500MG 100 ML IV SCH (09:15)
[2017-03-20] MEDS: MULTIPLE VITAMINS W/ MINERALS TAB PO SCH (09:16)
[2017-03-20] MEDS: DORZOLAM-TIMOLOL(2/0.5%) OPTH(EYE) SOLN 10ML LEFTEYE SCH ×2 (09:17→21:28)
[2017-03-20 09:19] VITALS: BP 120/82
[2017-03-20] MEDS: BICALUTAMIDE 50 MG TAB PO SCH (09:19)
[2017-03-20] MEDS: BOOST PLUS 8 ounce PO SCH ×2 (09:23→17:07)
[2017-03-20 12:10] VITALS: BP 124/75
[2017-03-20] MEDS ORDERED: MORPHINE SULF INJ 2 MG/ML SYRINGE 1ML IV PRN (15:15)
[2017-03-20] MEDS ORDERED: HYDROcodone-ACET 5/325MG TAB PO PRN (15:15)
[2017-03-20 17:19] VITALS: BP 120/67
[2017-03-20 20:42] VITALS: BP 120/67
[2017-03-20] MEDS: LACTULOSE 20Gm/30ML SOLN PO PRN (21:31)
[2017-03-20 22:00] VITALS: BP 125/70
[2017-03-21] MEDS: IPRATROPIUM BROM 0.5 MG/2.5ML INH SOL NEB SCH ×4 (00:21→19:36)
[2017-03-21] MEDS: ALBUTEROL SULF 2.5 MG/0.5ML(0.5%) NEB SOLN NEB SCH ×4 (00:22→19:36)
[2017-03-21 04:56] VITALS: BP 132/69
[2017-03-21] MEDS: metroNIDAZOLE 500 MG TAB PO SCH (05:46)
[2017-03-21] MEDS: LITHIUM CARBONATE 300 MG TAB PO SCH ×3 (05:46→14:05)
[2017-03-21] MEDS: LEVOTHYROXINE SODIUM 50 MCG TAB PO SCH (05:47)
[2017-03-21 06:44] LABS: Basophils # (auto) 0 uL; Basophils % (auto) 0.2 % (0.0-2.0); Eosinophils # (auto) 0.1 uL; Eosinophils % (auto) 0.8 % (0.0-7.0); Hematocrit 34.4 % (41.0-53.0); Hemoglobin 11.5 g/dL (13.5-17.5); Lymphocytes # (auto) 1.6 uL; Lymphocytes % (auto) 8.9 % (10.0-50.0); Mean Corpuscular Hemoglobin 32.2 pg (28.0-32.0); Mean Corpuscular Hgb Conc. 33.4 g/dL (32.0-36.0); Mean Corpuscular Volume 96.3 fL (80.0-100.0); Monocytes # (auto) 1.2 uL; Monocytes % (auto) 6.3 % (0.0-12.0); Neutrophils # (auto) 15.5 uL; Neutrophils % (auto) 83.8 % (37.0-80.0); Platelet Count (auto) 217 10^3/uL (140-450); Red Blood Cells 3.57 10^6/uL (4.5-5.90); Red Cell Distribution Width 13.4 % (11.8-14.3); White Blood Cell 18.5 10^3/uL (4.4-10.8)
[2017-03-21 07:03] LABS: Albumin 2.2 g/dL (3.4-5.0); BUN/Creatinine Ratio 36.2; Calcium 8.4 mg/dL (8.5-10.1); Potassium 3.4 mmol/L (3.5-5.1)
[2017-03-21 07:05] LABS: Bilirubin, Total 0.4 mg/dL (0.2-1.0); Total Protein 6.6 g/dL (6.4-8.2)
[2017-03-21] MEDS: BOOST PLUS 8 ounce PO SCH ×2 (08:00→21:55)
[2017-03-21 09:33] VITALS: BP 120/67
[2017-03-21] MEDS: LEVOFLOXACIN 500MG 100 ML IV SCH (11:12)
[2017-03-21] MEDS: DORZOLAM-TIMOLOL(2/0.5%) OPTH(EYE) SOLN 10ML LEFTEYE SCH ×2 (11:13→21:55)
[2017-03-21] MEDS: BICALUTAMIDE 50 MG TAB PO SCH (11:14)
[2017-03-21] MEDS: THIORIDAZINE 25 MG PO SCH ×4 (11:14→21:55)
[2017-03-21] MEDS: MULTIPLE VITAMINS W/ MINERALS TAB PO SCH (11:15)
[2017-03-21] MEDS: ASCORBIC ACID 500 MG TAB PO SCH (11:15)
[2017-03-21] MEDS ORDERED: POTASSIUM CHL 20 Meq TABLET PO ONE (12:00)
[2017-03-21] MEDS ORDERED: cefTRIAXone 1GM/10ml IVPUSH 10 ML IV ONE (12:00)
[2017-03-21] MEDS ORDERED: VANCOMYCIN PER PHARMACY 0 MG IV SCH (12:00)
[2017-03-21 12:44] VITALS: BP 103/56
[2017-03-21] MEDS: cefTAZidime 1 GM in SODIUM CHL 0.9% 50 ML IV SCH ×2 (13:58→21:59)
[2017-03-21] MEDS ORDERED: THIORIDAZINE 25 MG PO SCH (14:00)
[2017-03-21] MEDS ORDERED: VANCOMYCIN 1,500 MG in D5W 5% 250 ML IV SCH (14:00)
[2017-03-21] MEDS: SODIUM CHLORIDE 0.9% 1,000 ML IV SCH (14:02)
[2017-03-21] MEDS: VANCOMYCIN 1,500 MG in D5W 5% 250 ML IV SCH (15:12)
[2017-03-21 17:12] VITALS: BP 102/60
[2017-03-21 21:58] VITALS: BP 115/54
[2017-03-22] MEDS: ALBUTEROL SULF 2.5 MG/0.5ML(0.5%) NEB SOLN NEB SCH ×4 (00:07→19:47)
[2017-03-22] MEDS: IPRATROPIUM BROM 0.5 MG/2.5ML INH SOL NEB SCH ×4 (00:07→19:47)
[2017-03-22 05:27] VITALS: BP 119/64
[2017-03-22] MEDS: cefTAZidime 1 GM in SODIUM CHL 0.9% 50 ML IV SCH ×3 (06:00→21:43)
[2017-03-22] MEDS: LEVOTHYROXINE SODIUM 50 MCG TAB PO SCH (06:00)
[2017-03-22] MEDS: LITHIUM CARBONATE 300 MG TAB PO SCH ×2 (06:00→21:15)
[2017-03-22 07:31] LABS: Basophils # (auto) 0 uL; Basophils % (auto) 0.3 % (0.0-2.0); Eosinophils # (auto) 0.1 uL; Eosinophils % (auto) 0.6 % (0.0-7.0); Hematocrit 34.6 % (41.0-53.0); Hemoglobin 11.3 g/dL (13.5-17.5); Lymphocytes # (auto) 1.4 uL; Lymphocytes % (auto) 8.1 % (10.0-50.0); Mean Corpuscular Hemoglobin 31.5 pg (28.0-32.0); Mean Corpuscular Hgb Conc. 32.6 g/dL (32.0-36.0); Mean Corpuscular Volume 96.7 fL (80.0-100.0); Monocytes # (auto) 0.9 uL; Monocytes % (auto) 5.1 % (0.0-12.0); Neutrophils # (auto) 14.8 uL; Neutrophils % (auto) 85.9 % (37.0-80.0); Platelet Count (auto) 226 10^3/uL (140-450); Red Blood Cells 3.58 10^6/uL (4.5-5.90); Red Cell Distribution Width 13.2 % (11.8-14.3); White Blood Cell 17.2 10^3/uL (4.4-10.8)
[2017-03-22 07:47] LABS: Calcium 8.1 mg/dL (8.5-10.1); Potassium 4.2 mmol/L (3.5-5.1)
[2017-03-22] MEDS: BOOST PLUS 8 ounce PO SCH ×2 (08:00→18:12)
[2017-03-22] MEDS ORDERED: cefTRIAXone 1GM/10ml IVPUSH 10 ML IV SCH (09:00)
[2017-03-22 09:09] VITALS: BP 110/64
[2017-03-22] MEDS: SODIUM CHLORIDE 0.9% 1,000 ML IV SCH (09:54)
[2017-03-22] MEDS ORDERED: FLORASTOR (S. BOULARDII) 250 MG CAP PO ONE (11:38)
[2017-03-22] MEDS: ASCORBIC ACID 500 MG TAB PO SCH (14:13)
[2017-03-22] MEDS: MULTIPLE VITAMINS W/ MINERALS TAB PO SCH (14:13)
[2017-03-22] MEDS: metroNIDAZOLE 500 MG TAB PO SCH ×3 (14:21→23:39)
[2017-03-22] MEDS: BICALUTAMIDE 50 MG TAB PO SCH (14:26)
[2017-03-22] MEDS: DORZOLAM-TIMOLOL(2/0.5%) OPTH(EYE) SOLN 10ML LEFTEYE SCH ×2 (14:27→21:40)
[2017-03-22] MEDS: VANCOMYCIN 1,500 MG in D5W 5% 250 ML IV SCH (15:06)
[2017-03-22] MEDS: THIORIDAZINE 25 MG PO SCH (21:15)
[2017-03-22 22:00] VITALS: BP 120/66
[2017-03-23] VITALS (7 sets, daily range): BP systolic 110–136; BP diastolic 56–75
[2017-03-23] MEDS: ALBUTEROL SULF 2.5 MG/0.5ML(0.5%) NEB SOLN NEB SCH ×4 (00:10→18:44)
[2017-03-23] MEDS: IPRATROPIUM BROM 0.5 MG/2.5ML INH SOL NEB SCH ×4 (00:10→18:44)
[2017-03-23] MEDS: SODIUM CHLORIDE 0.9% 1,000 ML IV SCH ×2 (03:50→23:40)
[2017-03-23] MEDS: cefTAZidime 1 GM in SODIUM CHL 0.9% 50 ML IV SCH ×3 (05:43→22:18)
[2017-03-23 05:44] LABS: Basophils # (auto) 0 uL; Basophils % (auto) 0.3 % (0.0-2.0); Eosinophils # (auto) 0.2 uL; Hematocrit 32.5 % (41.0-53.0); Lymphocytes # (auto) 1.5 uL; Mean Corpuscular Hemoglobin 32.4 pg (28.0-32.0); Mean Corpuscular Hgb Conc. 33.7 g/dL (32.0-36.0); Monocytes % (auto) 6.8 % (0.0-12.0); Neutrophils # (auto) 12.4 uL; Neutrophils % (auto) 81.9 % (37.0-80.0); Nucleated Red Blood Cells % 0.1 %; Platelet Count (auto) 203 10^3/uL (140-450); Red Blood Cells 3.38 10^6/uL (4.5-5.90); Red Cell Distribution Width 13.5 % (11.8-14.3); White Blood Cell 15.1 10^3/uL (4.4-10.8)
[2017-03-23] MEDS: metroNIDAZOLE 500 MG TAB PO SCH ×4 (06:01→18:44)
[2017-03-23] MEDS: LEVOTHYROXINE SODIUM 50 MCG TAB PO SCH (06:02)
[2017-03-23 06:07] LABS: Calcium 7.8 mg/dL (8.5-10.1); Magnesium 2.6 mg/dL (1.6-2.6); Potassium 4.3 mmol/L (3.5-5.1)
[2017-03-23] MEDS: BOOST PLUS 8 ounce PO SCH ×2 (08:00→18:00)
[2017-03-23] MEDS: BICALUTAMIDE 50 MG TAB PO SCH (10:00)
[2017-03-23] MEDS: LITHIUM CARBONATE 300 MG TAB PO SCH ×3 (10:00→22:00)
[2017-03-23] MEDS: DORZOLAM-TIMOLOL(2/0.5%) OPTH(EYE) SOLN 10ML LEFTEYE SCH ×2 (10:00→22:14)
[2017-03-23] MEDS: FLORASTOR (S. BOULARDII) 250 MG CAP PO SCH (11:10)
[2017-03-23] MEDS: MULTIPLE VITAMINS W/ MINERALS TAB PO SCH (11:10)
[2017-03-23] MEDS: THIORIDAZINE 25 MG PO SCH ×2 (14:00→22:00)
[2017-03-23] MEDS: VANCOMYCIN 1,500 MG in D5W 5% 250 ML IV SCH (15:00)
[2017-03-23] MEDS: ASCORBIC ACID 500 MG TAB PO SCH (15:56)
[2017-03-24] MEDS: ALBUTEROL SULF 2.5 MG/0.5ML(0.5%) NEB SOLN NEB SCH ×4 (00:47→19:02)
[2017-03-24] MEDS: IPRATROPIUM BROM 0.5 MG/2.5ML INH SOL NEB SCH ×4 (00:47→19:02)
[2017-03-24 05:37] VITALS: BP 117/61
[2017-03-24] MEDS: cefTAZidime 1 GM in SODIUM CHL 0.9% 50 ML IV SCH ×3 (05:53→21:51)
[2017-03-24] MEDS: metroNIDAZOLE 500 MG TAB PO SCH ×2 (05:56)
[2017-03-24] MEDS: LEVOTHYROXINE SODIUM 50 MCG TAB PO SCH (05:57)
[2017-03-24 07:20] LABS: Basophils # (auto) 0.1 uL; Basophils % (auto) 0.7 % (0.0-2.0); Eosinophils # (auto) 0.2 uL; Eosinophils % (auto) 1.4 % (0.0-7.0); Hematocrit 31.8 % (41.0-53.0); Hemoglobin 10.6 g/dL (13.5-17.5); Lymphocytes # (auto) 1.7 uL; Lymphocytes % (auto) 11.6 % (10.0-50.0); Mean Corpuscular Hemoglobin 32.4 pg (28.0-32.0); Mean Corpuscular Hgb Conc. 33.5 g/dL (32.0-36.0); Mean Corpuscular Volume 96.7 fL (80.0-100.0); Monocytes % (auto) 6.8 % (0.0-12.0); Neutrophils # (auto) 11.7 uL; Neutrophils % (auto) 79.5 % (37.0-80.0); Platelet Count (auto) 191 10^3/uL (140-450); Red Blood Cells 3.29 10^6/uL (4.5-5.90); Red Cell Distribution Width 13.6 % (11.8-14.3); White Blood Cell 14.7 10^3/uL (4.4-10.8)
[2017-03-24 07:27] LABS: BUN/Creatinine Ratio 30.1; Potassium 4.3 mmol/L (3.5-5.1)
[2017-03-24 08:00] VITALS: BP 124/68
[2017-03-24] MEDS: BOOST PLUS 8 ounce PO SCH ×2 (08:00→18:00)
[2017-03-24 09:00] VITALS: BP 124/68
[2017-03-24] MEDS: LITHIUM CARBONATE 300 MG TAB PO SCH ×2 (10:00→21:49)
[2017-03-24] MEDS: BICALUTAMIDE 50 MG TAB PO SCH (10:37)
[2017-03-24] MEDS: MULTIPLE VITAMINS W/ MINERALS TAB PO SCH (10:38)
[2017-03-24] MEDS: ASCORBIC ACID 500 MG TAB PO SCH (10:38)
[2017-03-24] MEDS: FLORASTOR (S. BOULARDII) 250 MG CAP PO SCH (10:38)
[2017-03-24] MEDS: DORZOLAM-TIMOLOL(2/0.5%) OPTH(EYE) SOLN 10ML LEFTEYE SCH ×2 (10:39→21:51)
[2017-03-24 13:00] VITALS: BP 120/69
[2017-03-24] MEDS: THIORIDAZINE 25 MG PO SCH ×2 (14:00→21:49)
[2017-03-24 17:03] VITALS: BP 107/57
[2017-03-24] MEDS: SODIUM CHLORIDE 0.9% 1,000 ML IV SCH (21:49)
[2017-03-24 22:02] VITALS: BP 123/72
[2017-03-25] MEDS: ALBUTEROL SULF 2.5 MG/0.5ML(0.5%) NEB SOLN NEB SCH ×4 (00:44→19:16)
[2017-03-25] MEDS: IPRATROPIUM BROM 0.5 MG/2.5ML INH SOL NEB SCH ×4 (00:44→19:16)
[2017-03-25 05:36] VITALS: BP 123/61
[2017-03-25] MEDS: cefTAZidime 1 GM in SODIUM CHL 0.9% 50 ML IV SCH ×3 (05:41→22:24)
[2017-03-25] MEDS: LEVOTHYROXINE SODIUM 50 MCG TAB PO SCH (06:24)
[2017-03-25 09:00] VITALS: BP 122/73
[2017-03-25] MEDS: LITHIUM CARBONATE 300 MG TAB PO SCH (10:00)
[2017-03-25] MEDS: MULTIPLE VITAMINS W/ MINERALS TAB PO SCH (10:16)
[2017-03-25] MEDS: FLORASTOR (S. BOULARDII) 250 MG CAP PO SCH (10:16)
[2017-03-25] MEDS: ASCORBIC ACID 500 MG TAB PO SCH (10:16)
[2017-03-25] MEDS: BICALUTAMIDE 50 MG TAB PO SCH (10:16)
[2017-03-25] MEDS: DORZOLAM-TIMOLOL(2/0.5%) OPTH(EYE) SOLN 10ML LEFTEYE SCH ×2 (10:16→22:24)
[2017-03-25] MEDS: BOOST PLUS 8 ounce PO SCH ×2 (10:17→18:04)
[2017-03-25] MEDS ORDERED: ASCORBIC ACID 500 MG TAB PO ONE (11:00)
[2017-03-25] MEDS ORDERED: BICALUTAMIDE 50 MG TAB PO ONE (11:00)
[2017-03-25 13:00] VITALS: BP 122/62
[2017-03-25 17:52] VITALS: BP_SYST 120; BP_SYST 127; BP_DIAS 56; BP_DIAS 70
[2017-03-25 20:00] VITALS: BP 119/68
[2017-03-25 23:02] VITALS: BP 119/68
[2017-03-26] MEDS: IPRATROPIUM BROM 0.5 MG/2.5ML INH SOL NEB SCH ×4 (00:45→19:18)
[2017-03-26] MEDS: ALBUTEROL SULF 2.5 MG/0.5ML(0.5%) NEB SOLN NEB SCH ×4 (00:45→19:18)
[2017-03-26 04:57] VITALS: BP 120/71
[2017-03-26] MEDS: LEVOTHYROXINE SODIUM 50 MCG TAB PO SCH (07:03)
[2017-03-26] MEDS: cefTAZidime 1 GM in SODIUM CHL 0.9% 50 ML IV SCH ×3 (07:04→21:52)
[2017-03-26 08:01] VITALS: BP 141/73
[2017-03-26] MEDS: FLORASTOR (S. BOULARDII) 250 MG CAP PO SCH (09:54)
[2017-03-26] MEDS: MULTIPLE VITAMINS W/ MINERALS TAB PO SCH (09:54)
[2017-03-26] MEDS: BOOST PLUS 8 ounce PO SCH ×2 (09:54→19:21)
[2017-03-26] MEDS: ASCORBIC ACID 500 MG TAB PO SCH (09:54)
[2017-03-26] MEDS: DORZOLAM-TIMOLOL(2/0.5%) OPTH(EYE) SOLN 10ML LEFTEYE SCH ×2 (09:55→21:52)
[2017-03-26] MEDS: BICALUTAMIDE 50 MG TAB PO SCH (10:44)
[2017-03-26 14:09] VITALS: BP 138/75
[2017-03-26 17:28] VITALS: BP 140/77
[2017-03-26 20:00] VITALS: BP 130/76
[2017-03-26 22:00] VITALS: BP 130/76
[2017-03-27] MEDS: IPRATROPIUM BROM 0.5 MG/2.5ML INH SOL NEB SCH ×4 (00:44→20:12)
[2017-03-27] MEDS: ALBUTEROL SULF 2.5 MG/0.5ML(0.5%) NEB SOLN NEB SCH ×4 (00:44→20:12)
[2017-03-27 04:50] VITALS: BP 130/76
[2017-03-27 05:00] VITALS: BP 125/69
[2017-03-27] MEDS: LEVOTHYROXINE SODIUM 50 MCG TAB PO SCH (06:45)
[2017-03-27] MEDS: cefTAZidime 1 GM in SODIUM CHL 0.9% 50 ML IV SCH ×3 (06:45→23:08)
[2017-03-27 09:00] VITALS: BP 144/71
[2017-03-27] MEDS: BOOST PLUS 8 ounce PO SCH ×2 (10:19→18:03)
[2017-03-27] MEDS: DORZOLAM-TIMOLOL(2/0.5%) OPTH(EYE) SOLN 10ML LEFTEYE SCH ×2 (10:19→23:08)
[2017-03-27] MEDS: MULTIPLE VITAMINS W/ MINERALS TAB PO SCH (10:20)
[2017-03-27] MEDS: BICALUTAMIDE 50 MG TAB PO SCH (10:20)
[2017-03-27] MEDS: FLORASTOR (S. BOULARDII) 250 MG CAP PO SCH (10:20)
[2017-03-27] MEDS: ASCORBIC ACID 500 MG TAB PO SCH (10:20)
[2017-03-27 12:30] VITALS: BP 132/71
[2017-03-27 21:40] VITALS: BP 127/73
[2017-03-28] MEDS: ALBUTEROL SULF 2.5 MG/0.5ML(0.5%) NEB SOLN NEB SCH ×4 (00:09→18:55)
[2017-03-28] MEDS: IPRATROPIUM BROM 0.5 MG/2.5ML INH SOL NEB SCH ×4 (00:09→18:56)
[2017-03-28 04:44] VITALS: BP 138/87
[2017-03-28] MEDS: cefTAZidime 1 GM in SODIUM CHL 0.9% 50 ML IV SCH ×3 (06:20→21:28)
[2017-03-28] MEDS: LEVOTHYROXINE SODIUM 50 MCG TAB PO SCH (06:20)
[2017-03-28 09:00] VITALS: BP 128/73
[2017-03-28] MEDS: BOOST PLUS 8 ounce PO SCH ×2 (09:41→18:00)
[2017-03-28] MEDS: BICALUTAMIDE 50 MG TAB PO SCH (09:42)
[2017-03-28] MEDS: DORZOLAM-TIMOLOL(2/0.5%) OPTH(EYE) SOLN 10ML LEFTEYE SCH ×2 (09:42→21:29)
[2017-03-28] MEDS: ASCORBIC ACID 500 MG TAB PO SCH (09:42)
[2017-03-28] MEDS: MULTIPLE VITAMINS W/ MINERALS TAB PO SCH (09:42)
[2017-03-28] MEDS: FLORASTOR (S. BOULARDII) 250 MG CAP PO SCH (09:42)
[2017-03-28 13:00] VITALS: BP 132/78
[2017-03-28 16:56] VITALS: BP 133/70
[2017-03-28 22:00] VITALS: BP 120/69
[2017-03-29 05:00] VITALS: BP 128/68
[2017-03-29] MEDS: cefTAZidime 1 GM in SODIUM CHL 0.9% 50 ML IV SCH ×3 (05:30→22:01)
[2017-03-29] MEDS: LEVOTHYROXINE SODIUM 50 MCG TAB PO SCH (06:43)
[2017-03-29] MEDS: ALBUTEROL SULF 2.5 MG/0.5ML(0.5%) NEB SOLN NEB SCH ×5 (07:19→20:40)
[2017-03-29] MEDS: IPRATROPIUM BROM 0.5 MG/2.5ML INH SOL NEB SCH ×5 (07:19→20:40)
[2017-03-29] MEDS: BOOST PLUS 8 ounce PO SCH ×2 (08:00→18:00)
[2017-03-29 08:07] LABS: Basophils # (auto) 0.1 uL; Basophils % (auto) 0.6 % (0.0-2.0); Eosinophils # (auto) 0.3 uL; Hemoglobin 10.9 g/dL (13.5-17.5); Lymphocytes # (auto) 2.6 uL; Mean Corpuscular Hemoglobin 32.5 pg (28.0-32.0); Mean Corpuscular Hgb Conc. 33.9 g/dL (32.0-36.0); Mean Corpuscular Volume 95.8 fL (80.0-100.0); Monocytes # (auto) 0.6 uL; Monocytes % (auto) 5.9 % (0.0-12.0); Neutrophils # (auto) 7.3 uL; Neutrophils % (auto) 66.5 % (37.0-80.0); Nucleated Red Blood Cells % 0.1 %; Platelet Count (auto) 224 10^3/uL (140-450); Red Blood Cells 3.35 10^6/uL (4.5-5.90)
[2017-03-29 08:11] LABS: BUN/Creatinine Ratio 22.2; Calcium 7.7 mg/dL (8.5-10.1)
[2017-03-29 09:00] VITALS: BP 128/76
[2017-03-29] MEDS: DORZOLAM-TIMOLOL(2/0.5%) OPTH(EYE) SOLN 10ML LEFTEYE SCH ×2 (09:28→22:00)
[2017-03-29] MEDS: FLORASTOR (S. BOULARDII) 250 MG CAP PO SCH (09:28)
[2017-03-29] MEDS: BICALUTAMIDE 50 MG TAB PO SCH (09:28)
[2017-03-29] MEDS: MULTIPLE VITAMINS W/ MINERALS TAB PO SCH (09:28)
[2017-03-29] MEDS: ASCORBIC ACID 500 MG TAB PO SCH (09:28)
[2017-03-29 12:10] VITALS: BP 135/88
[2017-03-29 16:36] VITALS: BP 127/73
[2017-03-29 22:00] VITALS: BP 130/66
[2017-03-30 05:00] VITALS: BP 138/74
[2017-03-30] MEDS: LEVOTHYROXINE SODIUM 50 MCG TAB PO SCH (06:06)
[2017-03-30] MEDS: cefTAZidime 1 GM in SODIUM CHL 0.9% 50 ML IV SCH ×3 (06:06→22:17)
[2017-03-30] MEDS: IPRATROPIUM BROM 0.5 MG/2.5ML INH SOL NEB SCH ×3 (06:12→19:23)
[2017-03-30] MEDS: ALBUTEROL SULF 2.5 MG/0.5ML(0.5%) NEB SOLN NEB SCH ×3 (06:12→19:23)
[2017-03-30] MEDS: BOOST PLUS 8 ounce PO SCH ×2 (08:00→18:02)
[2017-03-30 08:30] VITALS: BP 133/77
[2017-03-30] MEDS: MULTIPLE VITAMINS W/ MINERALS TAB PO SCH (09:50)
[2017-03-30] MEDS: BICALUTAMIDE 50 MG TAB PO SCH (09:50)
[2017-03-30] MEDS: ASCORBIC ACID 500 MG TAB PO SCH (09:50)
[2017-03-30] MEDS: FLORASTOR (S. BOULARDII) 250 MG CAP PO SCH (09:50)
[2017-03-30] MEDS: DORZOLAM-TIMOLOL(2/0.5%) OPTH(EYE) SOLN 10ML LEFTEYE SCH ×2 (09:50→22:18)
[2017-03-30 10:31] VITALS: BP 133/77
[2017-03-30] MEDS ORDERED: HYDROcodone-ACET 5/325MG TAB PO PRN (12:15)
[2017-03-30 13:14] VITALS: BP 137/80
[2017-03-30 16:53] VITALS: BP 146/81
[2017-03-30 22:00] VITALS: BP 124/68
[2017-03-31] MEDS: ALBUTEROL SULF 2.5 MG/0.5ML(0.5%) NEB SOLN NEB SCH ×4 (01:11→19:33)
[2017-03-31] MEDS: IPRATROPIUM BROM 0.5 MG/2.5ML INH SOL NEB SCH ×4 (01:11→19:33)
[2017-03-31 05:00] VITALS: BP 136/71
[2017-03-31] MEDS: cefTAZidime 1 GM in SODIUM CHL 0.9% 50 ML IV SCH ×3 (06:43→22:10)
[2017-03-31] MEDS: LEVOTHYROXINE SODIUM 50 MCG TAB PO SCH (06:43)
[2017-03-31 06:56] LABS: Basophils # (auto) 0.1 uL; Basophils % (auto) 0.7 % (0.0-2.0); Eosinophils # (auto) 0.3 uL; Eosinophils % (auto) 3.4 % (0.0-7.0); Hematocrit 34.3 % (41.0-53.0); Hemoglobin 11.4 g/dL (13.5-17.5); Lymphocytes # (auto) 2.3 uL; Lymphocytes % (auto) 23.9 % (10.0-50.0); Mean Corpuscular Hgb Conc. 33.3 g/dL (32.0-36.0); Mean Corpuscular Volume 96.1 fL (80.0-100.0); Monocytes # (auto) 0.6 uL; Monocytes % (auto) 6.4 % (0.0-12.0); Neutrophils # (auto) 6.3 uL; Neutrophils % (auto) 65.6 % (37.0-80.0); Nucleated Red Blood Cells % 0.1 %; Platelet Count (auto) 258 10^3/uL (140-450); Red Blood Cells 3.57 10^6/uL (4.5-5.90); Red Cell Distribution Width 14.1 % (11.8-14.3); White Blood Cell 9.6 10^3/uL (4.4-10.8)
[2017-03-31] MEDS: BOOST PLUS 8 ounce PO SCH ×2 (08:00→17:45)
[2017-03-31 09:00] VITALS: BP 128/74
[2017-03-31] MEDS: BICALUTAMIDE 50 MG TAB PO SCH (09:36)
[2017-03-31] MEDS: FLORASTOR (S. BOULARDII) 250 MG CAP PO SCH (09:36)
[2017-03-31] MEDS: ASCORBIC ACID 500 MG TAB PO SCH (09:36)
[2017-03-31] MEDS: MULTIPLE VITAMINS W/ MINERALS TAB PO SCH (09:36)
[2017-03-31] MEDS: DORZOLAM-TIMOLOL(2/0.5%) OPTH(EYE) SOLN 10ML LEFTEYE SCH ×2 (09:36→22:10)
[2017-03-31] MEDS ORDERED: ALBUTEROL SULF 2.5 MG/0.5ML(0.5%) NEB SOLN NEB PRN (12:00)
[2017-03-31] MEDS ORDERED: ACETAMINOPHEN 500 MG TAB PO PRN (12:00)
[2017-03-31] MEDS ORDERED: PROMETHAZINE HCL 25 MG/ML 1ML IV PRN (12:00)
[2017-03-31] MEDS ORDERED: LACTULOSE 20Gm/30ML SOLN PO PRN (12:00)
[2017-03-31 13:00] VITALS: BP 133/75
[2017-03-31 17:39] VITALS: BP 137/82
[2017-03-31 20:00] VITALS: BP 128/74
[2017-03-31 21:54] VITALS: BP 128/74
[2017-04-01] VITALS (7 sets, daily range): BP systolic 125–138; BP diastolic 67–79
[2017-04-01] MEDS: cefTAZidime 1 GM in SODIUM CHL 0.9% 50 ML IV SCH (06:19)
[2017-04-01] MEDS: IPRATROPIUM BROM 0.5 MG/2.5ML INH SOL NEB SCH ×4 (06:30→19:29)
[2017-04-01] MEDS: ALBUTEROL SULF 2.5 MG/0.5ML(0.5%) NEB SOLN NEB SCH ×4 (06:30→19:29)
[2017-04-01] MEDS: LEVOTHYROXINE SODIUM 50 MCG TAB PO SCH (06:38)
[2017-04-01] MEDS: BICALUTAMIDE 50 MG TAB PO SCH (09:19)
[2017-04-01] MEDS: FLORASTOR (S. BOULARDII) 250 MG CAP PO SCH (09:20)
[2017-04-01] MEDS: MULTIPLE VITAMINS W/ MINERALS TAB PO SCH (09:26)
[2017-04-01] MEDS: DORZOLAM-TIMOLOL(2/0.5%) OPTH(EYE) SOLN 10ML LEFTEYE SCH ×2 (09:27→22:42)
[2017-04-01] MEDS: ASCORBIC ACID 500 MG TAB PO SCH (09:27)
[2017-04-01] MEDS: BOOST PLUS 8 ounce PO SCH ×2 (09:35→19:00)
[2017-04-02] VITALS (8 sets, daily range): BP systolic 112–125; BP diastolic 60–82
[2017-04-02] MEDS: ALBUTEROL SULF 2.5 MG/0.5ML(0.5%) NEB SOLN NEB SCH ×4 (00:07→18:40)
[2017-04-02] MEDS: IPRATROPIUM BROM 0.5 MG/2.5ML INH SOL NEB SCH ×4 (00:07→18:40)
[2017-04-02] MEDS: LEVOTHYROXINE SODIUM 50 MCG TAB PO SCH (07:03)
[2017-04-02] MEDS: BOOST PLUS 8 ounce PO SCH ×2 (08:00→18:11)
[2017-04-02] MEDS: FLORASTOR (S. BOULARDII) 250 MG CAP PO SCH (09:19)
[2017-04-02] MEDS: BICALUTAMIDE 50 MG TAB PO SCH (09:19)
[2017-04-02] MEDS: MULTIPLE VITAMINS W/ MINERALS TAB PO SCH (09:19)
[2017-04-02] MEDS: DORZOLAM-TIMOLOL(2/0.5%) OPTH(EYE) SOLN 10ML LEFTEYE SCH ×2 (09:19→22:00)
[2017-04-02] MEDS: ASCORBIC ACID 500 MG TAB PO SCH (09:19)
[2017-04-02] MEDS: PRO-STAT 64 30ML PO SCH (18:00)
[2017-04-03 05:50] VITALS: BP 134/77
[2017-04-03] MEDS: LEVOTHYROXINE SODIUM 50 MCG TAB PO SCH (06:41)
[2017-04-03] MEDS: ALBUTEROL SULF 2.5 MG/0.5ML(0.5%) NEB SOLN NEB SCH ×4 (07:13→19:38)
[2017-04-03] MEDS: IPRATROPIUM BROM 0.5 MG/2.5ML INH SOL NEB SCH ×4 (07:13→19:38)
[2017-04-03] MEDS: BOOST PLUS 8 ounce PO SCH (08:00)
[2017-04-03] MEDS: PRO-STAT 64 30ML PO SCH (08:00)
[2017-04-03 08:35] VITALS: BP 133/77
[2017-04-03] MEDS: BICALUTAMIDE 50 MG TAB PO SCH (10:37)
[2017-04-03] MEDS: FLORASTOR (S. BOULARDII) 250 MG CAP PO SCH (10:38)
[2017-04-03] MEDS: ASCORBIC ACID 500 MG TAB PO SCH (10:38)
[2017-04-03] MEDS: DORZOLAM-TIMOLOL(2/0.5%) OPTH(EYE) SOLN 10ML LEFTEYE SCH ×2 (10:38→23:24)
[2017-04-03] MEDS: MULTIPLE VITAMINS W/ MINERALS TAB PO SCH (10:38)
[2017-04-03 12:58] VITALS: BP 119/73
[2017-04-03 17:20] VITALS: BP 121/76
[2017-04-03 20:00] VITALS: BP 124/72
[2017-04-03 22:00] VITALS: BP 124/72
[2017-04-04] MEDS: ALBUTEROL SULF 2.5 MG/0.5ML(0.5%) NEB SOLN NEB SCH ×5 (00:37→19:53)
[2017-04-04] MEDS: IPRATROPIUM BROM 0.5 MG/2.5ML INH SOL NEB SCH ×5 (00:37→19:53)
[2017-04-04 05:30] VITALS: BP 136/76
[2017-04-04] MEDS: LEVOTHYROXINE SODIUM 50 MCG TAB PO SCH (06:48)
[2017-04-04] MEDS: BOOST PLUS 8 ounce PO SCH ×2 (08:54→18:10)
[2017-04-04] MEDS: PRO-STAT 64 30ML PO SCH ×2 (08:55→18:11)
[2017-04-04 09:00] VITALS: BP 114/66
[2017-04-04] MEDS: DORZOLAM-TIMOLOL(2/0.5%) OPTH(EYE) SOLN 10ML LEFTEYE SCH ×2 (10:28→21:10)
[2017-04-04] MEDS: FLORASTOR (S. BOULARDII) 250 MG CAP PO SCH (10:30)
[2017-04-04] MEDS: MULTIPLE VITAMINS W/ MINERALS TAB PO SCH (10:30)
[2017-04-04] MEDS: BICALUTAMIDE 50 MG TAB PO SCH (10:30)
[2017-04-04] MEDS: ASCORBIC ACID 500 MG TAB PO SCH (10:30)
[2017-04-04 13:00] VITALS: BP 113/73
[2017-04-04 17:00] VITALS: BP 117/71
[2017-04-04 22:00] VITALS: BP 120/65
[2017-04-05 05:00] VITALS: BP 137/76
[2017-04-05] MEDS: LEVOTHYROXINE SODIUM 50 MCG TAB PO SCH (05:44)
[2017-04-05] MEDS: IPRATROPIUM BROM 0.5 MG/2.5ML INH SOL NEB SCH ×3 (06:00→19:05)
[2017-04-05] MEDS: ALBUTEROL SULF 2.5 MG/0.5ML(0.5%) NEB SOLN NEB SCH ×3 (06:00→19:05)
[2017-04-05] MEDS: BOOST PLUS 8 ounce PO SCH ×2 (07:24→18:17)
[2017-04-05] MEDS: PRO-STAT 64 30ML PO SCH ×2 (07:24→18:00)
[2017-04-05 08:00] VITALS: BP 137/76
[2017-04-05 09:00] VITALS: BP 119/65
[2017-04-05] MEDS: MULTIPLE VITAMINS W/ MINERALS TAB PO SCH (09:33)
[2017-04-05] MEDS: FLORASTOR (S. BOULARDII) 250 MG CAP PO SCH (09:33)
[2017-04-05] MEDS: DORZOLAM-TIMOLOL(2/0.5%) OPTH(EYE) SOLN 10ML LEFTEYE SCH (09:33)
[2017-04-05] MEDS: ASCORBIC ACID 500 MG TAB PO SCH (09:33)
[2017-04-05] MEDS: BICALUTAMIDE 50 MG TAB PO SCH (09:33)
[2017-04-05 13:00] VITALS: BP 116/76
[2017-04-05 15:16] VITALS: BP 119/65
[2017-04-05 17:00] VITALS: BP 118/68
[2017-04-06] MEDS ORDERED: LEVOTHYROXINE SODIUM 50 MCG TAB PO SCH (07:00)
[2017-04-06] MEDS ORDERED: FLORASTOR (S. BOULARDII) 250 MG CAP PO SCH (10:00)
== END 2017-04-05 19:50 | DRG 871 ==
LOC: ER 16:59 → TELE 17:00 → TELE-EAST 21:30 → EAST 03-07 19:10
PROVIDERS: ADMIT Internal Medicine; ATTEND Internal Medicine
DX: A41.52 Sepsis due to Pseudomonas (principal); J15.1 Pneumonia due to Pseudomonas; E44.0 Moderate protein-calorie malnutrition; K80.00 Calculus of gallbladder with acute cholecystitis without obstruction; G92 Toxic encephalopathy; R53.2 Functional quadriplegia; D68.59 Other primary thrombophilia; D69.6 Thrombocytopenia, unspecified; J44.0 Chronic obstructive pulmonary disease with (acute) lower respiratory infection; J44.1 Chronic obstructive pulmonary disease with (acute) exacerbation; C61 Malignant neoplasm of prostate; E03.9 Hypothyroidism, unspecified; F20.9 Schizophrenia, unspecified; Z51.5 Encounter for palliative care; D64.9 Anemia, unspecified; R74.0 Nonspecific elevation of levels of transaminase and lactic acid dehydrogenase [LDH]; T43.595A Adverse effect of other antipsychotics and neuroleptics, initial encounter; K59.00 Constipation, unspecified; F41.9 Anxiety disorder, unspecified; G47.00 Insomnia, unspecified; R19.7 Diarrhea, unspecified; Y92.89 Other specified places as the place of occurrence of the external cause; Z79.899 Other long term (current) drug therapy; Z80.0 Family history of malignant neoplasm of digestive organs; Z68.22 Body mass index [BMI] 22.0-22.9, adult; Z82.49 Family history of ischemic heart disease and other diseases of the circulatory system; Z85.118 Personal history of other malignant neoplasm of bronchus and lung
CPT/HCPCS: 36415; 70450; 71010; 71045; 76705; 80048; 80053; 80178; 80202; 81001; 83540; 83550; 83605; 83735; 83880; 84100; 84443; 84484; 85025; 85610; 85730; 86850; 86900; 86901; 87040; 87070; 87077; 87081; 87186; 87205; 87400; 93005; 93306; 94640; 94761; 96361; 96365; 96367; 97110; 97116; 97163; 97530; J0690; J1956; J3490; J7060